=== PATIENT | female | born 1940 | race Caucasian/White ===

== ENCOUNTER 2024-12-29 21:06 | Inpatient (IN) | payer MEDICARE, MEDICAID, SELFPAY ==
[2024-12-29] VITALS (7 sets, daily range): BP systolic 91–150; BP diastolic 60–131; PULSE 81–109; RESP 16–31; TEMP 36.5–36.8; O2SAT 92–97; BMI 26.3
[2024-12-29 21:45] LABS: Absolute Neutrophil Count 5.4 X10^3/uL (2.0-7.7); Basophil# 0.02 X10^3/uL; Basophil% 0.3 % (0-1); Eosinophil# 0.02 X10^3/uL; Eosinophils% 0.3 % (0-5); Hematocrit 42.1 % (37-47); Hemoglobin 13.6 g/dL (12.0-15.0); Lymphocyte % 13.5 % (19-41); Mean Corp Hgb Conc 32.3 g/dL (32-36); Mean Corpuscular Volume 92.7 fL (81-99); Mean Platelet Vol. 10.2 fl (6.2-12.0); Monocyte# 0.89 X10^3/uL; NRBC Flagged by Analyzer 0 % (0-5); Neutrophil # 5.44 X10^3/uL (2.7-7.7); Neutrophil % 73.2 % (47-70); Platelet Count 234 K/mm3 (150-450); RBC Distribution Width CV 12.9 % (11.6-14.6); RBC Distribution Width SD 43.9 fl (35.1-43.9); Red Blood Count 4.54 M/mm3 (4.2-5.4); White Blood Count 7.4 K/mm3 (4.4-11.0)
--- NOTE | 2024-12-29 21:55 | EKG12_ITS ---
Test Reason : DYSRHYTHMIA Blood Pressure : */* mmHG Vent. Rate : 86 BPM Atrial Rate : 86 BPM P-R Int : 164 ms QRS Dur : 138 ms QT Int : 394 ms P-R-T Axes : 80 66 64 degrees QTcB Int : 471 ms Sinus rhythm with Premature atrial complexes Right bundle branch block Abnormal ECG Confirmed by YULISA BARTH, PASTORA ([id number]), editor map ANALILIA WASHBURN ([id number]) on 12/30/2024 11:10:02 AM Referred By: Confirmed By: PASTORA MÁRQUEZ MD
[2024-12-29] MEDS: 0.9% Normal Saline (500mL Bag) 500 ML 999 ML IV (21:59)
--- NOTE | 2024-12-29 22:00 | RAD_ITS ---
PROCEDURE: CHEST 1 VIEW (PORTABLE) 12/29/2024 REASON FOR EXAM: COUGH TECHNIQUE: Frontal view of the chest. COMPARISON: None FINDINGS: Hardware: None Heart: Heart size is mildly enlarged. Aortic atherosclerosis. Lungs: Patchy opacity at the right lung base with a moderate right pleural effusion which obscures the hemidiaphragms. Bones: Degenerative changes are identified within the thoracic spine. RAD/Chest 1 View (Portable) IMPRESSION: Moderate right pleural effusion. Patchy opacity at the right lung base may rep resent infection, atelectasis, and/or edema. Reading Location: [id number]
[2024-12-29 22:19] LABS: Anion Gap 13 (5-15); BUN 20 mg/dL (4-19); BUN/Creat Ratio 20.7 RATIO (10-20); Calcium,Total 8.8 mg/dL (7.6-11.0); Carbon Dioxide 30.4 mmol/L (21.0-32.0); Chloride 98 mmol/L (98-108); Creatinine, Serum 0.98 mg/dL (0.70-1.20); EST Glomerular Filtration Rate 58 (>60); Estimated Creatinine Clearance 44.76 ml/min (50-250); Glucose 177 mg/dL (70-99); Potassium 3.5 mmol/L (3.3-5.1); Sodium Level 141 mmol/L (133-145)
[2024-12-29] MEDS: Ceftriaxone 2 GM in 0.9% Normal Saline (50mL MB+) 50 ML IV (22:44)
--- NOTE | 2024-12-29 22:44 | EX.ED.DYSGE1 ---
HPI History of Present Illness Chief Complaint: Shortness of Breath Detail of Chief Complaint: Shortness of breath that started 3 months ago worst past 1 to 2 weeks Informant: family Onset/Context/Timing Onset: Weeks Context: Gradual Onset Timing: Continuous Quality: Dyspnea with activity past 2 weeks Location: Resides at the [facility] Current Severity: Moderate Maximum Severity: Severe Worsened by: Activity Relieved by: Nothing Associated Symptoms Associated Symptoms: History limited due to dementia Narrative Narrative: Patient is an 84-year-old woman. She resides at the [facility]. She was diagnosed with Alzheimer's/dementia per son. She is no CPR. She is no invasive ventilation. Noninvasive to ventilation is acceptable. Pressors peripherally are acceptable. Son states she required oxygen starting approximately 3 months ago. Starting 2 weeks ago she was having trouble walking any distance or up steps. Today her oxygen requirement increased markedly. She has had a slight cough. Family members informing that she is having swelling of her legs. There is no history of congestive heart failure. There is no history of atrial fibrillation. She has been sitting more because of shortness of breath. She has had no vomiting, diarrhea. She has not complained of any urinary symptoms. Prior similar symptoms: No Recent Illness/Hospitalization: No [facility], [facility] Medical History Hyperlipemia Dementia Active asthma COPD (chronic obstructive pulmonary disease) Allergy/AdvReac Type Severity Reaction Status Date / Time doxycycline Allergy UNKNOWN Verified 12/29/24 21:11 grass pollen Allergy UNKNOWN Verified 12/29/24 21:11 montelukast (From Singulair) Allergy UNKNOWN Verified 12/29/24 21:11 Social History housing: care home Smoking Status: Former smoker ROS ROS ED Review of Systems ROS Unobtainable: due to mental status and other Details: Limited due to dementia. Patient forgets what she is said in 30 to 60 seconds. Respiratory/Chest Respiratory/Chest: Reports cough, dyspnea and dyspnea on exertion EXAM Physical Exam Const Vital Signs: 12/29/24 21:07 12/29/24 21:10 12/29/24 21:10 Temperature 98.3 F 97.7 F L Temperature Source Axillary Axillary Pulse Rate 102 H 109 H Respiratory Rate 16 29 H Respiratory Effort Short of Breath Labored Respiratory Depth Shallow Respiratory Pattern Tachypnea Blood Pressure 150/131 H 150/131 H Blood Pressure Mean 137 137 Pulse Ox 96 92 Oxygen Delivery Method Non-Rebreather Nasal Cannula Nasal Cannula Oxygen Flow Rate (L/min) 15 6 6 Fraction of Inspired Oxygen (FIO2) 12/29/24 22:00 12/29/24 22:00 12/29/24 22:00 Temperature Temperature Source Pulse Rate Respiratory Rate 31 H Respiratory Effort Respiratory Depth Respiratory Pattern Blood Pressure 91/60 Blood Pressure Mean 70 Pulse Ox 93 Oxygen Delivery Method Nasal Cannula Nasal Cannula Oxygen Flow Rate (L/min) 6 6 Fraction of Inspired Oxygen (FIO2) 12/29/24 22:10 12/29/24 22:54 12/29/24 23:00 Temperature 97.8 F 97.8 F 97.8 F Temperature Source Axillary Oral Pulse Rate 85 85 81 Respiratory Rate 26 H 26 H 23 H Respiratory Effort Respiratory Depth Respiratory Pattern Blood Pressure 112/72 124/84 H 107/89 H Blood Pressure Mean 85 97 95 Pulse Ox 96 96 96 Oxygen Delivery Method Nasal Cannula Nasal Cannula Oxygen Flow Rate (L/min) 6 6 Fraction of Inspired Oxygen (FIO2) 12/29/24 23:25 12/29/24 23:25 Temperature Temperature Source Pulse Rate 84 Respiratory Rate 24 H Respiratory Effort Respiratory Depth Respiratory Pattern Tachypnea Blood Pressure Blood Pressure Mean Pulse Ox 97 97 Oxygen Delivery Method Airvo Oxygen Flow Rate (L/min) 60 Fraction of Inspired Oxygen (FIO2) 45 45 When I saw the patient her pressures were in the 60s systolic. This was repeated. She was also in A-fib at that time with RVR. Nurse protocol orders were initiated. Additional orders were added. Positive well nourished and well developed General Appearance ED: well developed; Negative for cyanotic, diaphoretic or NAD HEENT Reports dry mucous membranes HEENT Narrative: Head is atraumatic normocephalic. Ears normal. Nares patent. Uvula is midline. No deviation tongue or protrusion. Mouth ED: Yes dry mucous membranes Mouth: dry mucous membranes Eyes PERRL and EOMs intact bilaterally General Eye ED: Negative for pale conjunctiva or scleral icterus Neck no lymphadenopathy, supple and no JVD Neck Narrative: Trachea is midline. There is no stridor. Chest Wall inspection of chest normal and palpation of chest normal Resp No normal respiratory effort and No clear to auscultation bilaterally Resp Narrative: Use of accessory muscles and suprasternal retractions and supraclavicular retractions Auscultation: rales right lower and left base and wheezes expiratory wheezes and lower bilaterally Cardio no murmurs Rate: tachycardic Rhythm: abnormal rhythm irregularly irregular GI normal to inspection, nondistended, normoactive bowel sounds, non-tender, non-distended and no masses; Negative for hepatosplenomegaly Back/Spine no CVA tenderness Extremity Extremity Narrative: Patient has pitting edema of her legs and feet. There is no asymmetry, discoloration, leg vein distention, palpable cords or tenderness on the distribution deep venous system. General Extremety ED: Yes edema General Extremity: edema Neuro No oriented x3, CN's II-XII intact bilaterally and no sensory deficits noted Sensorium / Orientation: alert Motor Exam: strength 5/5 throughout Psych mental status grossly normal Skin no rashes or lesions noted, no wounds and No skin turgor normal General Skin Exam: Negative for elasticity normal or jaundice Sepsis Attestation Sepsis Alert: Yes Date exam was performed: 12/29/24 Time exam was performed: 22:10 Possible Source of Sepsis: Pulmonary Sepsis Organ Dysfunction Criteria Present: SBP < 90 mmHg or MAP < 65 mmHg and Lactic Acid > 2 mmol/L Fluid Resuscitation Fluid resuscitation indicated?: Yes Fluid Resuscitation ordered: Lesser volume fluid bolus ordered Amount of fluid ordered: 500 Reason for lesser fluid bolus:: Concern for fluid overload MDM MDM MDM Narrative Medical decision making narrative: Fact the patient is in A-fib on the monitor with RVR and rales need to evaluate for cardiac ischemia, CHF due to A-fib with RVR. Because patient has abnormal breath sounds more so on the right this would be more concerning for infection. There are no prior records for review. As previously noted patient is no intubation. No invasive ventilation. Noninvasive ventilation and IV peripheral pressors is acceptable. Son states approximately 2 weeks ago she was having trouble walking into his house. Prior to that she would eat dinner with him 4 times a week. She is not a good informant because of her dementia. Patient received a fluid bolus. She was not given large bolus because of concern for heart failure with A-fib RVR and rales. Lab Data Labs: Laboratory Results - last 24 hr 12/29/24 12/29/24 21:18 22:30 WBC 7.4 RBC 4.54 Hgb 13.6 Hct 42.1 MCV 92.7 MCH 30.0 MCHC 32.3 RDW Std Deviation 43.9 RDW Coeff of Jesus 12.9 Plt Count 234 MPV 10.2 Immature Gran % (Auto) 0.700 Neut % (Auto) 73.2 H Lymph % (Auto) 13.5 L [place] % (Auto) 12.0 H Eos % (Auto) 0.3 Baso % (Auto) 0.3 Absolute Neuts (auto) 5.4 Absolute Lymphs (auto) 1.00 Nucleated RBC % 0 Sodium 141 Potassium 3.5 Chloride 98 Carbon Dioxide 30.4 Anion Gap 13 BUN 20 H Creatinine 0.98 Estim Creat Clear Calc 44.76 L Est GFR (MDRD) Non-Af 58 L BUN/Creatinine Ratio 20.7 H Glucose 177 H Lactic Acid 2.5 H* Calcium 8.8 Troponin T High Sens 35 H NT pro BNP II 292 ABG Data Attestation: I personally reviewed and interpreted this ABG as follows: Interpretation: ABG reveals a mixed acid-base picture. She is acidemic. Bicarb is elevated at 33.4. Total CO2 is 35. O2 sat is 92% on 6 L. pCO2 is 61 and pO2 is 69. ABG results: ABG 12/29/24 22:55 Specimen Type ART Sample Site L Radial pH 7.34 L Bicarbonate Actual 33.4 H Total CO2 35 Base Excess 8 H O2 Saturation 92 L O2 % 6.0 ABG pCO2 61.2 H ABG pO2 69 L Kapil Test Positive O2 Delivery Device Cannula Vent Mode Not entered Radiography Chest X-Ray - ED: 1 View and Read by ED Physician (Patient noted to have an effusion on the right. There appears to be an infiltrate in light of patient's presentation.) Diagnostic Testing: Clinical Impression(s) from Imaging Studies Chest X-Ray 12/29/24 22:00 IMPRESSION: Moderate right pleural effusion. Patchy opacity at the right lung base may represent infection, atelectasis, and/or edema. Reading Location: [id number] Patient had another episode of rapid heart rate of 130+ per respiratory therapist, Nik. Suspect her initial hypotension may have been due to the A-fib RVR. Regardless she did respond to the 500 cc bolus. EKG Initial EKG: Attestation: I personally reviewed and interpreted this EKG as follows: Interpretation: Sinus Rhythm (Rate is 86. [place] interval is under 64 ms Rickers 338 ms. She has findings consistent with right bundle branch block. QT duration 394 ms. Huson is normal.) Management Discussion w/another healthcare provider: Hospitalist Treatment and Re-Evaluation :: There is no evidence of heart failure i.e. cephalization curly B-lines. There is an effusion on the right this may be a parapneumonic effusion in light of her oscillatory findings. She was treated with azithromycin and Rocephin. As stated she did not receive the full fluid bolus because of concern for heart failure as well. Comments:: The patient was reassessed at 2333 she no longer was using accessory muscles or having retractions. She states she likes the oxygen therapy. Critical Care Time Critical Care Time: Yes Critical care time (excluding procedures): 30-74 minutes (33), Including time spent: (History, physical, documentation, independent rotation of labs, imaging and treatment for right lower lobe pneumonia), Discussing w/Patient &/or Family/Agate Setter (Lengthy discussion with son regarding CODE STATUS and expectations), Discussing w/Consultants (Case discussed with Dr. Conway to admit the person to PCU full admission.) and Arranging Admission or Transfer Discharge Plan Dx/Rx/DC Orders Clinical Impression: Right lower lobe pneumonia, Parapneumonic effusion, Acute on chronic respiratory failure with hypoxia and hypercapnia, Paroxysmal atrial fibrillation with RVR, Acute hypotension, DNR (do not resuscitate) discussion, DNR no code (do not resuscitate), Dementia Disposition Disposition: Acute Care [facility]
[2024-12-29 22:46] LABS: Pro- Brain NATRIURETIC PEPTIDE 292 pg/mL (<=1800); Troponin T High Sensitivity 35 ng/L (<=14)
[2024-12-29 22:58] LABS: Allen Test Positive; Base Excess 8 mmol/L (-2 to +2); Bicarbonate 33.4 mmol/L (22-26); Blood Gas Specimen Type ART; Mode Not entered; O2 Delivery Device Cannula; PO2 69 mmHG (75-100); SITE L Radial; SO2 92 % (95-99); Total Carbon Dioxide 35 mmol/L; pCO2 61.2 mmHg (35-45); pH 7.34 (7.35-7.45)
[2024-12-29 23:15] LABS: Lactic Acid 2.5 mmol/L (0.0-2.0)
[2024-12-29] MEDS: Azithromycin 500 MG in 0.9% Normal Saline (250mL Bag) 250 ML 255 MG IV (23:49)
--- NOTE | 2024-12-29 23:49 | PCM.HP.STD ---
HPI - General General Date of Service: 12/29/24 Chief Complaint: Dyspnea, hypoxia. HPI Narrative The patient is an 84 y/o F w/ PMHx: Hx Throat CA s/p radiation in remission, GERD, Former tobacco use, Anxiety and depression/mood disorder, Alzheimer's dementia with memory impairment with unclear behavioral disturbance history, COPD/Asthma, HLD, Allergic rhinitis who presents to the [facility] ED on 12/25/2024 with history of dyspnea progressing over the last 3 months however worsening over the last 1 to 2 weeks, worse with activity on chronic supplemental oxygen therapy with over the last 2 weeks difficulty even walking any distance or up steps with increased oxygen requirements on day of presentation with slight nonproductive cough with increased lower extremity swelling and orthopnea prompting family to bring patient in for evaluation. They do note that she is diagnosed with Alzheimer's dementia and has significant memory impairment and requested that no aggressive measures including intubation or CPR or central line be performed. ED physician and family did discuss pressor therapy and they noted peripheral therapy only would be amenable if needed. Workup in the ED included T98.3, heart 102, BP 150/131, respiratory rate 16, initially 96% on on nonrebreather 15 L with BP decreasing during presentation to 91/60 with most recent repeat vitals T97.8, heart rate 81, BP 107/89, respiratory rate 23, 96% on 6 L nasal cannula, CBC with WBC 7.4, human 13.6, platelet 234 without marked shift, ABG with pH 7.34, bicarb 33.4, O2 saturation 92%, pCO2 61.2, PO2 69, BMP with BUN/creat 20/0.98, GFR 58, glucose 177, lactic acid 2.5, initial troponin 35, NT proBNP 08/09/1991, chest x-ray with moderate right pleural effusion, patchy opacity in the right lung base, EKG with new onset atrial fibrillation with RVR. In the ED patient ministered Zithromax 500 mg IV x 1, Rocephin 2 g IV x 1, 500 cc normal saline. [facility] Medical History (Updated 12/30/24 @ 00:[address] Sandi Conway MD) History of throat cancer DNR (do not resuscitate) discussion DNR no code (do not resuscitate) Anxiety and depression GERD (gastroesophageal reflux disease) Allergic rhinitis Asthma Hyperlipemia Dementia COPD (chronic obstructive pulmonary disease) Home Medications ?Medication ?Instructions ?Recorded ?Last Taken ?Type albuterol sulfate 2.5 mg/3 mL mg 12/30/24 Unknown History (0.083 %) solution for nebulization divalproex 125 mg tablet,delayed PO 12/30/24 Unknown History release donepezil 10 mg tablet 10 mg PO DAILY 12/30/24 Unknown History escitalopram oxalate 5 mg tablet 5 mg PO DAILY 12/30/24 Unknown History fluticasone fur. 100 mcg-umeclid 1 ea inhalation DAILY 12/30/24 Unknown History 62.5 mcg-vilant 25 mcg inhalat.powder (Trelegy Ellipta) hydroxyzine pamoate 25 mg capsule mg 12/30/24 Unknown History memantine 10 mg tablet 10 mg PO DAILY 12/30/24 Unknown History mirabegron 25 mg tablet,extended 25 mg PO DAILY 12/30/24 Unknown History release 24 hr (Myrbetriq) pantoprazole 20 mg tablet,delayed 20 mg PO DAILY 12/30/24 Unknown History release Allergy/AdvReac Type Severity Reaction Status Date / Time doxycycline Allergy UNKNOWN Verified 12/29/24 21:11 grass pollen Allergy UNKNOWN Verified 12/29/24 21:11 montelukast (From Singulair) Allergy UNKNOWN Verified 12/29/24 21:11 Family History (Updated 12/30/24 @ 00:[address] Sandi Conway MD) Mother CVA (cerebral vascular accident) Hypertension Father No problems noted. Surgical History (Updated 12/30/24 @ 00:[address] Sandi Conway MD) History of hysterectomy History of bladder surgery Social History (Updated 12/30/24 @ 00:[address] Sandi Conway MD) housing: assisted Smoking Status: Former smoker how long ago did patient quit smoking: Quit ~ 10 years prior to current presentation. alcohol intake: never substance use type: does not use ROS Review of Systems ROS Unobtainable: due to mental condition and due to mental status Vital Signs Vital Signs Vital Signs: 12/29/24 21:07 12/29/24 21:10 12/29/24 21:10 Temperature 98.3 F 97.7 F L Temperature Source Axillary Axillary Pulse Rate 102 H 109 H Respiratory Rate 16 29 H Respiratory Effort Short of Breath Labored Respiratory Depth Shallow Respiratory Pattern Tachypnea Blood Pressure 150/131 H 150/131 H Blood Pressure Mean 137 137 Pulse Ox 96 92 Oxygen Delivery Method Non-Rebreather Nasal Cannula Nasal Cannula Oxygen Flow Rate (L/min) 15 6 6 Fraction of Inspired Oxygen (FIO2) 12/29/24 22:00 12/29/24 22:00 12/29/24 22:00 Temperature Temperature Source Pulse Rate Respiratory Rate 31 H Respiratory Effort Respiratory Depth Respiratory Pattern Blood Pressure 91/60 Blood Pressure Mean 70 Pulse Ox 93 Oxygen Delivery Method Nasal Cannula Nasal Cannula Oxygen Flow Rate (L/min) 6 6 Fraction of Inspired Oxygen (FIO2) 12/29/24 22:10 12/29/24 22:54 12/29/24 23:00 Temperature 97.8 F 97.8 F 97.8 F Temperature Source Axillary Oral Pulse Rate 85 85 81 Respiratory Rate 26 H 26 H 23 H Respiratory Effort Respiratory Depth Respiratory Pattern Blood Pressure 112/72 124/84 H 107/89 H Blood Pressure Mean 85 97 95 Pulse Ox 96 96 96 Oxygen Delivery Method Nasal Cannula Nasal Cannula Oxygen Flow Rate (L/min) 6 6 Fraction of Inspired Oxygen (FIO2) 12/29/24 23:25 12/29/24 23:25 Temperature Temperature Source Pulse Rate 84 Respiratory Rate 24 H Respiratory Effort Respiratory Depth Respiratory Pattern Tachypnea Blood Pressure Blood Pressure Mean Pulse Ox 97 97 Oxygen Delivery Method Airvo Oxygen Flow Rate (L/min) 60 Fraction of Inspired Oxygen (FIO2) 45 45 Weight Weight: 163 lb 2.273 oz Body Mass Index (BMI) 26.3 Physical Exam Narrative Physical Examination: General: Awake, alert to self, oriented to self but patient has underlying significant dementia and sometimes cannot even recognize her own son who is present, currently on Airvo, son notes she does appear more comfortable than initial ED arrival she had been in respiratory distress. Skin: Normal color, normal turgor, no icterus, no cyanosis except occasional stage ecchymoses, abrasion. HEENT: AT/NC, EOMI, PERRLA, mildly dry MM, no carotid bruits, no overt markedly elevated JVD the patient is moving frequently. Lungs: Significantly diminished, greater bases, right greater than left, mildly rhonchorous, mild rales at the bases, mildly increased respiratory rate, Airvo currently in place, respiratory distress lessened since initial ED arrival, occasional end expiratory wheeze but minimal. Heart: Irregular, rate controlled; no gallop, rub audible. Abdomen: Soft, NTTP, ND, normal BS, no appreciated HSM. Extremities: No cyanosis, no clubbing, mild pedal to distal mccurdy 1+ pitting edema. Neurological: Patient awake, alert, oriented as noted, cognitive function significantly chronically impaired with underlying Alzheimer's disease with dementia with memory impairment, pupils equally reactive to light and accommodation, cranial nerves grossly normal, moving all 4 extremities, no focal deficits, strength severely globally decreased. Psychiatric: Affect appears fatigued, respiratory distress improving as noted, no acute evidence of depressive or anxiety feelings but does have underlying history. Results Lab / Micro Data 12/29/24 21:18 12/29/24 21:18 Labs: Laboratory Results - last 24 hr 12/29/24 21:18: WBC 7.4, RBC 4.54, Hgb 13.6, Hct 42.1, MCV 92.7, MCH 30.0, MCHC 32.3, RDW Std Deviation 43.9, RDW Coeff of Jesus 12.9, Plt Count 234, MPV 10.2, Immature Gran % (Auto) 0.700, Neut % (Auto) 73.2 H, Lymph % (Auto) 13.5 L, [place] % (Auto) 12.0 H, Eos % (Auto) 0.3, Baso % (Auto) 0.3, Absolute Neuts (auto) 5.4, Absolute Lymphs (auto) 1.00, Nucleated RBC % 0, Sodium 141, Potassium 3.5, Chloride 98, Carbon Dioxide 30.4, Anion Gap 13, BUN 20 H, Creatinine 0.98, Estim Creat Clear Calc 44.76 L, Est GFR (MDRD) Non-Af 58 L, BUN/Creatinine Ratio 20.7 H, Glucose 177 H, Calcium 8.8, Troponin T High Sens 35 H, NT pro BNP II 292 12/29/24 22:30: Lactic Acid 2.5 H* ABG Data ABG results: ABG 12/29/24 22:55 Specimen Type ART Sample Site L Radial pH 7.34 L Bicarbonate Actual 33.4 H Total CO2 35 Base Excess 8 H O2 Saturation 92 L O2 % 6.0 ABG pCO2 61.2 H ABG pO2 69 L Kapil Test Positive O2 Delivery Device Cannula Vent Mode Not entered Imaging Radiology Impression Chest X-Ray 12/29/24 22:00 IMPRESSION: Moderate right pleural effusion. Patchy opacity at the right lung base may represent infection, atelectasis, and/or edema. Reading Location: [id number] Assessment & Plan Assessment/Plan (1) Acute on chronic respiratory failure with hypoxia and hypercapnia: PLAN: Plan The patient is an 84 y/o F w/ PMHx: Hx Throat CA s/p radiation in remission, GERD, Former tobacco use, Anxiety and depression/mood disorder, Alzheimer's dementia with memory impairment with unclear behavioral disturbance history, COPD/Asthma, HLD, Allergic rhinitis who presents to the [facility] ED on 12/25/2024 with history of dyspnea progressing over the last 3 months however worsening over the last 1 to 2 weeks, worse with activity on chronic supplemental oxygen therapy with over the last 2 weeks difficulty even walking any distance or up steps with increased oxygen requirements on day of presentation with slight nonproductive cough with increased lower extremity swelling and orthopnea prompting family to bring patient in for evaluation. #1. Acute hypoxic and hypercarbic respiratory failure, possibly multifactorial, secondary to RLL pneumonia with questionable parapneumonic effusion versus possible acute decompensated HF unclear subtype (normal BNP, no cephalization but does have possible effusion) complicated by PAF with RVR with indeterminate cardiac enzymes of unclear significance: Will admit to PCU, will place on BIPAP with repeat ABG in 1-2 hours following, will maintain on oxygen with wean as tolerated to room air, ATC budesonide, PRN albuterol, maintain on IV Rocephin and Azithromycin, will request CTA chest given new onset PAF and dyspnea only over the last 4 weeks but worsening in case PE but also will be able to better evaluate the effusion, encourage HOB, IS parameters w/ pending sputum cultures, full respiratory viral panel and urine antigens. Again no certainty of overload contributing to her current presentation however to be cautious if BP does improve certainly could consider pulsed dosing with IV Lasix if appropriate, echocardiogram requested, magnesium and TSH requested. Will continue to cycle cardiac enzymes to be cautious. Will continue monitor I's and O's. Will place neck venkat wraps with lower extremity elevation. Procalcitonin requested. Bld cx x 2 obtained in the ED. #2. Paroxysmal atrial fibrillation w/ RVR: EKG in ED w/ atrial fibrillation w/ RVR. Will maintain on telemetry, obtain cardiac enzyme serial set, obtain magnesium level, obtain ECHO, obtain TSH level. CHADs scoring with moderate risk appropriate for anticoagulation initiation however given significant advanced age and underlying dementia with fall risk did have lengthy discussion with family and at this time they elected to initiate Eliquis therapy. currently, heart rate improved in the ED, will initiate on low-dose metoprolol regimen with dose now and continue to monitor. #3. Hyperglycemia without diabetic history: Admission glucose 177, possibly stress response, hemoglobin A1c requested. #4. Chronic COPD/asthma with allergic rhinitis: Will maintain on oxygen with wean as tolerated to room air, will temporarily hold home inhalers and maintain on ATC budesonide therapy, PRN albuterol, HOB, IS parameters. #5. Alzheimer's dementia with memory impairment with unclear behavioral disturbance history: Complicates presentation, will maintain on fall precautions, will continue donepezil and memantine regimen, PT/OT/CM consulted for discharge planning. #6. Anxiety and depression/mood disorder: Will continue patient home escitalopram and Depakote regimen, clarifying hydroxyzine regimen. #7. Former tobacco use: Encourage continued tobacco cessation. #8. Chronic Kidney Disease Stage III, unclear subtype suspected per current labs: Admission BUN/Cr 20/0.98, GFR 58 but uncertain baseline, will continue to trend CMP to further elucidate. #9. GERD: Will continue patient on PPI. #10. History of throat cancer: Status post radiation only, considered remission per son discussion, encourage continued outpatient follow-up as previously arranged. #11. DVT prophylaxis: Eliquis as noted. #12. CODE status: Patient HCPOA is her son who is present, living will is not in place. Discussed CODE status at length with patient's son including difference between FULL code, DNR-CCA and DNR-CC status. Following discussions about the differences in these status, requested DNR CCA, no intubation, no aggressive measures, no central line but is amenable to peripheral pressors only if needed and CPAP/BiPAP usage if patient is able to tolerate. He does note that if the patient does not want any interventions and becomes agitated he would prefer that these be deferred. Advanced Care Planning Face to Face Time: 16 minutes. Charges/Coding Visit Charges Inpatient E&M: 42114 Init Hosp L3 Procedures Hospitalists Procedures: 27173 Advncd Care Plan 30 Min
[2024-12-29 23:51] LABS: Prothrombin Time (Protime)PT. 13.6 SECONDS (11.7-14.9)
[2024-12-30] VITALS (16 sets, daily range): BP systolic 77–158; BP diastolic 66–100; PULSE 70–89; RESP 18–24; TEMP 2.6–37.1; O2SAT 89–95; BMI 24.5; BMI 24.0
[2024-12-30] LABS: Troponin T High Sens 2 HR 29 ng/L (<=14)
--- NOTE | 2024-12-30 00:30 | CT_ITS ---
PROCEDURE: CTA CHEST W/WO CONTRAST 12/30/2024 REASON FOR EXAM: EFFUSION, HYPOXIA TECHNIQUE: CTA CHEST W/WO CONTRAST Multiplanar Sagittal and Coronal images were obtained. CONTRAST: Isovue-370 VOLUME: 100 mL One or more dose reduction techniques were used (e.g., Automated exposure control, adjustment of the mA and/or kV according to patient size, use of iterative reconstruction technique). RADIATION DOSE SUMMARY: CTDlvol: 7.86 mGy DLP: 278 mGycm COMPARISON: Chest radiograph on 12/29/2024. FINDINGS: Minimal left lower lobe segmental branch pulmonary embolus. No evidence of large central or massive pulmonary embolus. No evidence of cardiac strain. Right hilar mass lesion extending to the subcarinal space measuring 7.3 x 5.7 cm. Secondary narrowing of the right lower lobe bronchus. Subsegmental atelectasis/consolidation of the right lower lobe with associated moderate right pleural effusion. Enlarged right hilar and mediastinal lymph nodes are noted with the largest in the subcarinal space measuring 3.2 cm, probably metastatic. Enlarged periceliac lymph node is noted measuring 1.4 cm, probably metastatic. Bilateral breast prostheses are noted. Moderate emphysema. Mild osteopenia. Mild diffuse spondylosis. Normal enhancement of the main pulmonary artery and right and left pulmonary arteries. Normal thoracic aorta and visualized great vessels. There is no demonstrated aortic dissection. Normal heart and pericardium. Normal visualized trachea. Normal remaining visualized upper abdomen. Moderate coronary artery calcifications are noted. CT/CTA Chest W/WO Contrast IMPRESSION: Minimal left lower lobe segmental branch pulmonary embolus. No evidence of large central or massive pulmonary embolus. No evidence of cardiac strain. Right hilar mass lesion extending to the subcarinal space measuring 7.3 x 5.7 c m. Secondary narrowing of the right lower lobe bronchus. Subsegmental atelectasis/consolidation of the right lower lobe with associated moderate right pleural effusion. Enlarged right hilar and mediastinal lymph nodes are noted with the largest in the subcarinal space measuring 3.2 cm, probably metastatic. Enlarged periceliac lymph node is noted measuring 1.4 cm, probably metastatic. Bilateral breast prostheses are noted. Moderate emphysema. Mild osteopenia. Mild diffuse spondylosis. Discussed with Dr Sandi Conway at 1:16 am EST. Reading Location: [place] [id number]
--- NOTE | 2024-12-30 01:47 | CPS ---
RT explained to pt about BIPAP mask. Pt stated she did not want to take her teeth out or wear a mask on her face. Explained that MD ordered this machine to improve breathing and blow off extra CO2. PT stated that she is comfortable and already breathing better. RT explained ABG also that was to be re-drawn in 2 hours. pt almost asleep at this time. [id number]
[2024-12-30] MEDS: 0.9% Saline Lock 10 ML Syringe IV (01:52)
[2024-12-30 02:22] LABS: Troponin T High Sens 4 HR 31 ng/L (<=14)
[2024-12-30 02:23] LABS: Reflex Lactate? Y
[2024-12-30 03:25] LABS: Allen Test Positive; Base Excess 12 mmol/L (-2 to +2); Bicarbonate 36.7 mmol/L (22-26); Blood Gas Specimen Type ART; Mode 60 L; O2 Delivery Device AIRVO; PO2 66 mmHG (75-100); SITE L Radial; SO2 92 % (95-99); Total Carbon Dioxide 39 mmol/L; pCO2 60.9 mmHg (35-45); pH 7.39 (7.35-7.45)
[2024-12-30 03:26] LABS: Lactic Acid 1.2 mmol/L (0.0-2.0)
[2024-12-30 04:03] LABS: Absolute Lymphocyte Count 1.14 X10^3/uL (0.83-4.51); Absolute Neutrophil Count 3.7 X10^3/uL (2.0-7.7); Basophil# 0.01 X10^3/uL; Basophil% 0.2 % (0-1); Eosinophil# 0.03 X10^3/uL; Eosinophils% 0.5 % (0-5); Hematocrit 38.7 % (37-47); Hemoglobin 12.5 g/dL (12.0-15.0); Lymphocyte # 1.14 X10^3/ul (0.83-4.51); Mean Corp Hgb Conc 32.3 g/dL (32-36); Mean Corpuscular Hgb 30.4 pg (27.0-32.0); Mean Corpuscular Volume 94.2 fL (81-99); Mean Platelet Vol. 10.2 fl (6.2-12.0); Monocyte# 0.86 X10^3/uL; Monocyte% 15.1 % (0-10); NRBC Flagged by Analyzer 0 % (0-5); Neutrophil # 3.66 X10^3/uL (2.7-7.7); Platelet Count 200 K/mm3 (150-450); RBC Distribution Width CV 12.8 % (11.6-14.6); RBC Distribution Width SD 44.7 fl (35.1-43.9); Red Blood Count 4.11 M/mm3 (4.2-5.4); White Blood Count 5.7 K/mm3 (4.4-11.0)
[2024-12-30 06:17] LABS: Cholesterol 196 mg/dL (<=200); High Density Lipoprotein 70 mg/dL; Low Density Lipoprotein Calc. 108 mg/dL; Triglycerides 91 mg/dL; Very Low Density Lipoprotein 18 mg/dL (5-40)
[2024-12-30 06:21] LABS: Hemoglobin A1c 5.7 % (<=5.6)
[2024-12-30 06:39] LABS: ALB/GLOB Ratio 1.1 RATIO (0.9-2.4); AST(SGOT) 18 U/L (<=31); Alanine Aminotransfer ALT/SGPT < 5 U/L (<=34); Alkaline Phosphatase 47 U/L (35-104); Anion Gap 11 (5-15); BUN 17 mg/dL (4-19); BUN/Creat Ratio 19.6 RATIO (10-20); Calcium,Total 8.4 mg/dL (7.6-11.0); Carbon Dioxide 30.7 mmol/L (21.0-32.0); Chloride 102 mmol/L (98-108); Creatinine, Serum 0.85 mg/dL (0.70-1.20); EST Glomerular Filtration Rate 68 (>60); Estimated Creatinine Clearance 52.41 ml/min (50-250); Globulin 2.7 g/dL (2.2-4.2); Glucose 93 mg/dL (70-99); Potassium 3.5 mmol/L (3.3-5.1); Protein, Total 5.7 g/dL (5.9-8.4); Sodium Level 143 mmol/L (133-145); Total Bilirubin 0.18 mg/dL (0.00-1.30)
[2024-12-30] MEDS: Escitalopram Oxalate 10 MG Tablet 5 MG PO (09:16)
[2024-12-30] MEDS: APIXABAN 5 MG TABLET PO ×2 (09:17→22:41)
[2024-12-30] MEDS: Memantine Hydrochloride 10 MG Tablet PO (09:18)
[2024-12-30] MEDS: Pantoprazole Sodium 20 MG Tablet PO (09:18)
[2024-12-30] MEDS: Menthol/Lanolin/Calamine/Znox 113 GM Tube 1 APPLIC TOPICAL (09:18)
[2024-12-30] MEDS: Vibegron 75 MG TABLET PO (09:18)
[2024-12-30] MEDS: Divalproex Sodium 125 MG Tablet PO (09:18)
[2024-12-30] MEDS: Donepezil HCl 10 MG Tablet PO (09:18)
--- NOTE | 2024-12-30 12:12 | PCM.PN.HOSP ---
Reason for Visit Reason for Visit: Diagnoses Acute and chronic respiratory failure with hypoxia (12/29/24) Acute and chronic respiratory failure with hypercapnia (12/29/24) Subjective Subjective Saw patient at bedside this morning. Patient was pretty comfortably on high flow nasal cannula at rest. Has history of Alzheimer's dementia, was alert and oriented to person and place but not time. Noted that she did feel weaker than her normal but denied any acute pain or discomfort currently. No other acute concerns at this time. Objective Data Objective Data Vital Signs: Vital Signs Temp Pulse Resp BP Pulse Ox O2 Del Method O2 Flow Rate 36.6 F L 80 24 H 77/66 L 89 Airvo 60 12/30/24 09:25 12/30/24 09:25 12/30/24 09:25 12/30/24 09:25 12/30/24 09:25 12/30/24 09:25 12/30/24 09:25 FiO2 37 12/30/24 09:25 Oxygen Flow Rate (L/min) 60 Oxygen Delivery Method Airvo Weight: 73.8 kg Body Mass Index (BMI) 24.0 Intake & Output: Intake and Output for Last 24 Hours 12/28/24 12/29/24 12/30/24 23:59 23:59 23:59 Intake Total 550 / 550 375 / 375 Output Total 300 / 300 Balance 550 / 550 75 / 75 Lab / Micro Data 12/30/24 03:30 12/30/24 03:30 Labs: Laboratory Results - last 24 hr 12/29/24 21:18: WBC 7.4, RBC 4.54, Hgb 13.6, Hct 42.1, MCV 92.7, MCH 30.0, MCHC 32.3, RDW Std Deviation 43.9, RDW Coeff of Jesus 12.9, Plt Count 234, MPV 10.2, Immature Gran % (Auto) 0.700, Neut % (Auto) 73.2 H, Lymph % (Auto) 13.5 L, [place] % (Auto) 12.0 H, Eos % (Auto) 0.3, Baso % (Auto) 0.3, Absolute Neuts (auto) 5.4, Absolute Lymphs (auto) 1.00, Nucleated RBC % 0, PT 13.6, INR 1.0, APTT 28.0, Sodium 141, Potassium 3.5, Chloride 98, Carbon Dioxide 30.4, Anion Gap 13, BUN 20 H, Creatinine 0.98, Estim Creat Clear Calc 44.76 L, Est GFR (MDRD) Non-Af 58 L, BUN/Creatinine Ratio 20.7 H, Glucose 177 H, Calcium 8.8, Troponin T High Sens 35 H, NT pro BNP II 292 12/29/24 22:30: Lactic Acid 2.5 H* 12/29/24 23:36: Magnesium 2.0, Troponin T Hi Sens 2 Hr 29 H 12/30/24 01:45: Lactic Acid 1.2, Troponin T Hi Sens 4Hr 31 H, Procalcitonin 0.40 H 12/30/24 03:30: WBC 5.7, RBC 4.11 L, Hgb 12.5, Hct 38.7, MCV 94.2, MCH 30.4, MCHC 32.3, RDW Std Deviation 44.7 H, RDW Coeff of Jesus 12.8, Plt Count 200, MPV 10.2, Immature Gran % (Auto) 0.200, Neut % (Auto) 64.0, Lymph % (Auto) 20.0, [place]ary % (Auto) 15.1 H, Eos % (Auto) 0.5, Baso % (Auto) 0.2, Absolute Neuts (auto) 3.7, Absolute Lymphs (auto) 1.14, Nucleated RBC % 0, Sodium 143, Potassium 3.5, Chloride 102, Carbon Dioxide 30.7, Anion Gap 11, BUN 17, Creatinine 0.85, Estim Creat Clear Calc 52.41, Est GFR (MDRD) Non-Af 68, BUN/Creatinine Ratio 19.6, Glucose 93, Hemoglobin A1c 5.7, Calcium 8.4, Total Bilirubin 0.18, AST 18, ALT < 5, Alkaline Phosphatase 47, Total Protein 5.7 L, Albumin 3.0 L, Globulin 2.7, Albumin/Globulin Ratio 1.1, Triglycerides 91, Cholesterol 196, LDL Cholesterol, Calc 108, VLDL Cholesterol 18, HDL Cholesterol 70, Cholesterol/HDL Ratio 2.80, TSH 4.610 H, Free T4 1.10 Micro: Microbiology 12/30/24 03:00 Mucosa - Nasopharyngeal Respiratory Panel (PCR) - Final 12/30/24 03:15 Nasal Secretion MRSA (PCR) - Final 12/30/24 03:32 Urine, Random Legionella Antigen - Final 12/30/24 03:32 Urine, Random Streptococcus pneumoniae Antigen (M - Final ABG Data ABG results: ABG 12/29/24 12/30/24 22:55 03:22 Specimen Type ART ART Sample Site L Radial L Radial pH 7.34 L 7.39 Bicarbonate Actual 33.4 H 36.7 H Total CO2 35 39 Base Excess 8 H 12 H O2 Saturation 92 L 92 L O2 % 6.0 37.0 ABG pCO2 61.2 H 60.9 H ABG pO2 69 L 66 L Kapil Test Positive Positive O2 Delivery Device Cannula AIRVO Vent Mode Not entered 60 L Radiography Diagnostic Testing: Radiology Impression Chest X-Ray 12/29/24 22:00 IMPRESSION: Moderate right pleural effusion. Patchy opacity at the right lung base may represent infection, atelectasis, and/or edema. Reading Location: [id number] Chest CTA 12/30/24 00:30 IMPRESSION: Minimal left lower lobe segmental branch pulmonary embolus. No evidence of large central or massive pulmonary embolus. No evidence of cardiac strain. Right hilar mass lesion extending to the subcarinal space measuring 7.3 x 5.7 cm. Secondary narrowing of the right lower lobe bronchus. Subsegmental atelectasis/consolidation of the right lower lobe with associated moderate right pleural effusion. Enlarged right hilar and mediastinal lymph nodes are noted with the largest in the subcarinal space measuring 3.2 cm, probably metastatic. Enlarged periceliac lymph node is noted measuring 1.4 cm, probably metastatic. Bilateral breast prostheses are noted. Moderate emphysema. Mild osteopenia. Mild diffuse spondylosis. Discussed with Dr Sandi Conway at 1:16 am EST. Reading [id number] Physical Exam Const alert, no apparent distress and average body habitus Constitutional Narrative: Elderly female, alert and oriented x [address], mildly fatigued appearing but otherwise sitting back comfortably in bed, making appropriate eye contact and in no acute distress. General Appearance: cooperative and comfortable HEENT normocephalic, head/scalp atraumatic, hearing grossly normal bilaterally, nasal mucous membranes and turbinates normal and moist oral mucous membranes Eyes PERRL, EOMs intact bilaterally and conjunctivae normal Neck full ROM Chest inspection of chest normal Resp normal respiratory effort and no use of accessory muscles Resp Narrative: Breathing comfortably on high flow nasal cannula at rest. Diminished breath sounds with crackles noted in mid to lower right lung zone. No wheezing noted. Cardio regular rate, regular rhythm, no murmurs and peripheral pulses 2+ throughout GI normal to inspection, nondistended, normoactive bowel sounds, soft to palpation, non-tender and non-distended Back/Spine normal ROM Extremity normal to inspection, full ROM and no pedal edema Skin no rashes or lesions noted Psych mental status grossly normal Assessment & Plan Assessment/Plan (1) Acute on chronic respiratory failure with hypoxia and hypercapnia: PLAN: Plan Patient is an 84-year-old female who presented to [facility] ED on 12/29/2024 with worsening shortness of breath. 1. Acute hypoxic respiratory failure suspect secondary to metastatic lung cancer with small acute PE and possible superimposed pneumonia ? Not on oxygen at baseline. Requiring Airvo up to 60 L on admit. CTA chest showed minimal LLL segmental branch PE with no evidence of cardiac strain, right hilar mass measuring 7.3 x 5.7 cm with narrowing of the RLL bronchus, moderate right pleural effusion, enlarged right hilar, mediastinal and periceliac lymph nodes. These findings are highly concerning for metastatic lung cancer. Discussed with patient's son over the phone on 12/30 and given her underlying Alzheimer's dementia with debility and family's desire to minimize aggressive treatment, he was agreeable with consulting hospice care for further evaluation. Hospice consulted. Will continue Eliquis and IV antibiotics for now. 2. Paroxysmal A-fib with RVR ? Remains in A-fib but rate much improved from admission. Continue Eliquis and Lopressor. 3. Alzheimer's dementia with mood disturbances and chronic debility ? PT/OT/case management consulted. Patient has lived at the [facility] for the past year. Continue home memantine, donepezil and escitalopram. 4. Chronic COPD/asthma with allergic rhinitis ? Continue home long-acting inhaler and albuterol as needed. 5. GERD ? Continue home PPI. 6. Overactive bladder ? Continue home mirabegron. DVT prophylaxis: Not indicated, on Eliquis CODE STATUS: DNR CCA, DNI Expected disposition: TBD Total clinical time spent by myself addressing the patient's medical issues, reviewing all the data, and collaborating with patient's care team: 50 minutes. Charges/Coding Visit Charges Inpatient E&M: 71257 [facility] Hosp L3
--- NOTE | 2024-12-30 15:54 | CHAPLAIN ---
Type of Pastoral Visit _x__ Initial Visit ___ Follow-up Visit ___ On-call Visit ___ General Patient Visit ___ Spiritual Assessment ___ Family Conference ___ Bereavement ___ Rapid Response ___ Code Blue ___ Other (describe below) Pastoral Care Referral From ___ Patient ___ Family ___ Nurse ___ Physician ___ Therapy Site Coordinator ___ Junior Mechanical Engineer _x__ Other (describe below) Sacrament/Intervention _x__ Active listening ___ Anointing ___ Anglican ___ Bereavement ___ Communion ___ Elodia exploration ___ ___ Life review _x__ Prayer ___ Reconciliation ___ Sacrament of Sick _x__ Supportive presence ___ Wedding ___ Other (describe below) Pastoral Comments sat with patient as she was disoriented and having breathing issues; used call light for assistance with her O2 and her need for the bathroom; gave calm presence and prayer which was effective to bring peace and care
--- NOTE | 2024-12-30 16:05 | CASEMGMT ---
Physician spoke with patient's son Faustino and he would like a referral made to Hospice. SW called Faustino. Introduced self and role at [facility]. SW confirmed he would like Hospice for patient. SW explained how the process works. Faustino would like [facility]. SW called [facility] and made a referral. Deloris VERAS
[2024-12-30] MEDS: Metoprolol Tartrate 25 MG Tablet 12.5 MG PO (22:42)
[2024-12-30] MEDS: Azithromycin 500 MG in 0.9% Normal Saline (250mL Bag) 250 ML 255 MG IV (22:50)
[2024-12-31] MEDS: Ceftriaxone 1 GM/50 ML BAG IV (00:06)
[2024-12-31] MEDS: HYDROmorphone 1 MG/ML Syringe IV (00:57)
[2024-12-31 01:02] VITALS: BP 137/92; PULSE 72; RESP 19; TEMP 36.7; O2SAT 92
--- NOTE | 2024-12-31 05:50 | NURSING ---
Report called to [facility]. Update given to Rodger at 0157 on 2024
--- NOTE | 2025-01-01 09:34 | PCM.DC ---
Discharge Instructions DC O2, CPAP, BIPAP needs Home O2 Discharge instructions: No Follow Up Care Test Results: Test results from this visit will be discussed in further detail at your follow-up appointment, if applicable. Discharge Plan Admission Admit Date/Time: 12/29/24 23:50 Primary Reason for Your Visit: shortness of breath Attending Provider: Emeterio Fernández Primary Care Provider: Ronald Gonzalez Consulting Providers: Sandi Conway; Alexei Jiménez; Barbara Holt; Ese Khan; Kena Romero; Sydney Chan MANAGER HEART FAILURE; Angela Chandler Discharge Orders/Prescriptions Prescriptions: Continued albuterol sulfate 2.5 mg /3 mL (0.083 %) solution for nebulization Patient Comments: [NO ORIGINAL SIG] donepezil 10 mg tablet 10 mg PO DAILY pantoprazole 20 mg tablet,delayed release (DR/EC) 20 mg PO DAILY divalproex 125 mg tablet,delayed release (DR/EC) PO hydroxyzine pamoate 25 mg capsule Patient Comments: [NO ORIGINAL SIG] memantine 10 mg tablet 10 mg PO DAILY escitalopram oxalate 5 mg tablet 5 mg PO DAILY mirabegron [Myrbetriq] 25 mg tablet extended release 24 hr 25 mg PO DAILY Trelegy Ellipta 100-62.5-25 mcg blister with device 1 ea inhalation DAILY Referrals / Follow Up: Ronald Gonzalez MD [Primary Care Provider] - Disposition Disposition (needs filled in before D/C Order can be placed): Hospice in Medical Facility
--- NOTE | 2025-01-01 09:35 | DS.PCM_ITS ---
Providers Date of Admission: 12/29/24 Date of Discharge: 12/30/24 Primary Care Physician: Dr. Ronald Gonzalez MD Consultations 12/30/24 15:01 Consult: Hospice / Palliative Care Routine Consulting Provider: [facility] Reason for Consult: acute respiratory failure due to suspected lung cancer w/ mets EMERGENT Consult: No MD Notified: Yes Date Notified: 12/30/24 Time Notified: 15:01 Method of Notification: per older adult social work specialist Reason For Visit: RESP FAILURE, PNA, ? HP EXAC Diagnosis Discharge Diagnosis (1) Acute on chronic respiratory failure with hypoxia and hypercapnia: Status: Chronic Code(s): J96.21 - Acute and chronic respiratory failure with hypoxia; J96.22 - Acute and chronic respiratory failure with hypercapnia Medications at Discharge Home Medications albuterol sulfate 2.5 mg/3 mL (0.083 %) solution for nebulization mg 12/30/24 divalproex 125 mg tablet,delayed release PO 12/30/24 donepezil 10 mg tablet 10 mg PO DAILY 12/30/24 escitalopram oxalate 5 mg tablet 5 mg PO DAILY 12/30/24 fluticasone fur. 100 mcg-umeclid 62.5 mcg-vilant 25 mcg inhalat.powder (Trelegy Ellipta) 1 ea inhalation DAILY 12/30/24 hydroxyzine pamoate 25 mg capsule mg 12/30/24 memantine 10 mg tablet 10 mg PO DAILY 12/30/24 mirabegron 25 mg tablet,extended release 24 hr (Myrbetriq) 25 mg PO DAILY 12/30/24 pantoprazole 20 mg tablet,delayed release 20 mg PO DAILY 12/30/24 Hospital Course Operations None Procedures EKG and - (Chest x-ray, CTA chest) Summary of Care Provided Minutes Spent on Discharge: 35 Hospital Course: Patient is an 84-year-old female who presented to [facility] ED on 12/29/2024 with worsening shortness of breath. Short hospital course as noted below. Patient was discharged to inpatient hospice on 12/30. 1. Acute hypoxic respiratory failure suspect secondary to metastatic lung cancer with small acute PE and possible superimposed pneumonia ? Not on oxygen at baseline. Requiring Airvo up to 60 L on admit. CTA chest showed minimal LLL segmental branch PE with no evidence of cardiac strain, right hilar mass measuring 7.3 x 5.7 cm with narrowing of the RLL bronchus, moderate right pleural effusion, enlarged right hilar, mediastinal and periceliac lymph nodes. These findings are highly concerning for metastatic lung cancer. Discussed with patient's son over the phone on 12/30 and given her underlying Alzheimer's dementia with debility and family's desire to minimize aggressive treatment, he was agreeable with consulting hospice care for further evaluation. Patient discharged to inpatient hospice on the evening of 12/30. 2. Paroxysmal A-fib with RVR ? Remains in A-fib but rate much improved from admission. Continue Eliquis and Lopressor. 3. Alzheimer's dementia with mood disturbances and chronic debility ? PT/OT/case management followed. Patient has lived at the [facility] for the past year. Continue home memantine, donepezil and escitalopram. 4. Chronic COPD/asthma with allergic rhinitis ? Continue home long-acting inhaler and albuterol as needed. 5. GERD ? Continue home PPI. 6. Overactive bladder ? Continue home mirabegron. Total clinical time spent by myself addressing the patient's medical issues, reviewing all the data, and collaborating with patient's care team: 35 minutes. Physical Exam Const alert, no apparent distress and average body habitus Constitutional Narrative: Elderly female, alert and oriented x [address], mildly fatigued appearing but otherwise sitting back comfortably in bed, making appropriate eye contact and in no acute distress. General Appearance: cooperative and comfortable HEENT normocephalic, head/scalp atraumatic, hearing grossly normal bilaterally, nasal mucous membranes and turbinates normal and moist oral mucous membranes Eyes PERRL, EOMs intact bilaterally and conjunctivae normal Neck full ROM Chest inspection of chest normal Resp normal respiratory effort and no use of accessory muscles Resp Narrative: Breathing comfortably on high flow nasal cannula at rest. Diminished breath sounds with crackles noted in mid to lower right lung zone. No wheezing noted. Cardio regular rate, regular rhythm, no murmurs and peripheral pulses 2+ throughout GI normal to inspection, nondistended, normoactive bowel sounds, soft to palpation, non-tender and non-distended Back/Spine normal ROM Extremity normal to inspection, full ROM and no pedal edema Skin no rashes or lesions noted Psych mental status grossly normal Weight / BMI Weight Weight: 73.8 kg Body Mass Index (BMI) 24.0 ABG / Lab / Microbiology Data 12/30/24 03:30 12/30/24 03:30 Microbiology: Microbiology 12/29/24 22:31 Blood Culture (Wb) - Left Forearm Blood Culture - Preliminary No growth in 48 hours. 12/29/24 22:10 Blood Culture (Wb) - Left Forearm Blood Culture - Preliminary No growth in 48 hours. 12/30/24 03:00 Mucosa - Nasopharyngeal Respiratory Panel (PCR) - Final 12/30/24 03:15 Nasal Secretion MRSA (PCR) - Final 12/30/24 03:32 Urine, Random Legionella Antigen - Final 12/30/24 03:32 Urine, Random Streptococcus pneumoniae Antigen (M - Final D/C Instructions DC O2, CPAP, BIPAP Needs Home O2 Discharge instructions: No Meaningful Use Info Meaningful Use Meaningful Use Diagnoses (Choose all that apply): None applicable Ischemic Stroke Statin Dosing Therapy Reference: STATIN DOSE THERAPY REFERENCE: * Patients > 75 years receive moderate or high dose statin therapy. * Patients 75 years or YOUNGER should receive HIGH intensity statin dose unless contraindicated. You will be required to document reason for non-treatment if statin daily dose does not meet guidelines. HIGH DOSE STATIN THERAPY DAILY Atorvastatin > than or = to 40 mg Rosuvastatin > than or = to 20 mg Amlodipine + Atorvastatin > than or = to 2.5/40 mg Ezetimibe + Simvastatin 10/80 mg Simvastatin 80mg Discharge Plan Admission Admit Date/Time: 12/29/24 23:50 Primary Reason for Your Visit: shortness of breath Attending Provider: Emeterio Fernández Primary Care Provider: Ronald Gonzalez Consulting Providers: Sandi Conway; Alexei Jiménez; Barbara Holt; Ese Khan; Kena Romero; Sydney Chan SOFTWARE LICENSING ANALYST; Angela Chandler Discharge Orders/Prescriptions Prescriptions: Continued albuterol sulfate 2.5 mg /3 mL (0.083 %) solution for nebulization Patient Comments: [NO ORIGINAL SIG] donepezil 10 mg tablet 10 mg PO DAILY pantoprazole 20 mg tablet,delayed release (DR/EC) 20 mg PO DAILY divalproex 125 mg tablet,delayed release (DR/EC) PO hydroxyzine pamoate 25 mg capsule Patient Comments: [NO ORIGINAL SIG] memantine 10 mg tablet 10 mg PO DAILY escitalopram oxalate 5 mg tablet 5 mg PO DAILY mirabegron [Myrbetriq] 25 mg tablet extended release 24 hr 25 mg PO DAILY Christie Ellipta 100-62.5-25 mcg blister with device 1 ea inhalation DAILY Referrals / Follow Up: Ronald Gonzalez MD [Primary Care Provider] - Disposition Disposition (needs filled in before D/C Order can be placed): Hospice in Medical Facility Charges/Coding Visit Charges Inpatient E&M: 45914 Disch Hosp >30min
== END 2024-12-31 01:20 | disposition hospice, inpatient (51) | DRG 193 ==
LOC: ED 23:58 → PCU 12-30 00:37
PROVIDERS: Admitting Provider Family Medicine; Emergency Provider Emergency Medicine; PCP Family Medicine; Visit Provider Hospitalist
DX: J18.9 Pneumonia, unspecified organism (principal); J96.22 Acute and chronic respiratory failure with hypercapnia; J96.21 Acute and chronic respiratory failure with hypoxia; C34.90 Malignant neoplasm of unspecified part of unspecified bronchus or lung; J44.0 Chronic obstructive pulmonary disease with (acute) lower respiratory infection; F02.83 Dementia in other diseases classified elsewhere, unspecified severity, with mood disturbance; Z66 Do not resuscitate; N18.30 Chronic kidney disease, stage 3 unspecified; F39 Unspecified mood [affective] disorder; I48.0 Paroxysmal atrial fibrillation; G30.9 Alzheimer's disease, unspecified; E78.5 Hyperlipidemia, unspecified; J30.9 Allergic rhinitis, unspecified; K21.9 Gastro-esophageal reflux disease without esophagitis; F41.8 Other specified anxiety disorders; Z87.891 Personal history of nicotine dependence; Z92.3 Personal history of irradiation; Z79.51 Long term (current) use of inhaled steroids; Z90.710 Acquired absence of both cervix and uterus; R73.9 Hyperglycemia, unspecified; R53.81 Other malaise; N32.81 Overactive bladder; Z85.89 Personal history of malignant neoplasm of other organs and systems; Z79.899 Other long term (current) drug therapy
CPT/HCPCS: 36415; 36600; 71045; 71275; 80048; 80053; 80061; 82803; 83036; 83605; 83735; 83880; 84145; 84439; 84443; 84484; 85025; 85610; 85730; 87040; 87449; 87633; 87641; 93005; 94660; 94760; 94762; 99285; Q9967; A4216; J0696